=== PATIENT | male | born 1990 | race African-American/Black ===

== ENCOUNTER 2019-09-24 00:36 | Observation (INO) ==
[2019-09-24] MEDS ORDERED: methylPREDNISolone SOD SUC 125 MG/2 ML VIAL IV STA (00:47)
[2019-09-24] MEDS ORDERED: SODIUM CHLORIDE 0.9% 500 ML IV STA (00:47)
[2019-09-24] MEDS ORDERED: cefTRIAXone 1,000 MG in SODIUM CHLORIDE 0.9% 100 ML IV STA (00:47)
[2019-09-24] MEDS ORDERED: ALBUTEROL NEB SOLN 5 MG/ML 20 ML/BOTTLE CONT NEB SCH (01:00)
[2019-09-24 01:09] LABS: ABG Base Excess 2.4 MMOL/L (-2.5-2.5); ABG HCO3 28.8 MMOL/L (20-26); ABG Oxygen Saturation 98.3 % (95-100); ABG PCO2 52.7 MM HG (35-48); ABG PH 7.355 (7.35-7.45); ABG TCO2 30.4 MMOL/L (23-27)
[2019-09-24 01:15] LABS: PT Patient Result 10.5 SECS (9.8-11.9)
[2019-09-24 01:24] LABS: Basophils # 0.1 10*3/uL (0.0-0.2); Basophils % 0.8 % (0.0-0.8); Eosinophils # 0.5 10*3/uL (0.0-0.87); Eosinophils % 4.5 % (0.00-10.9); Hematocrit 38.8 VOL% (42.0-52.0); Hemoglobin 11.2 GM/DL (14.0-18.0); Immature Granulocytes % 0.3 %; Immature Granulocytes Absolute 0.03 #; Lymphocytes # 3.7 10*3/uL (1.4-4.0); Mean Corpuscular HGB Conc 28.9 GM/DL (32-36); Mean Corpuscular Volume 72.4 FL (87-102); Mean Platelet Volume 10.2 FL (9.6-12.0); Monocytes % 7.6 % (1.7-12.7); Neutrophils % 51.8 % (38.7-73.9); Platelet Count 342 T/CUMM (130-400); Red Blood Count 5.36 MC/CUMM (3.8-5.5); Red Cell Distribution Width 16.1 % (9.3-17.3); White Blood Count 10.6 T/CUMM (4-12)
[2019-09-24 01:33] LABS: Albumin 3.5 G/DL (3.4-5.0); Bilirubin,Total 0.4 MG/DL (0.2-1.0); Calcium 8.3 MG/DL (8.5-10.1); Osmolality,Calculated 280.1 MOS/KG (273-304); Total Protein 6.2 G/DL (6.4-8.3)
[2019-09-24 03:17] LABS: Anisocytosis 1+; Microcytosis 2+
[2019-09-24 03:18] LABS: Hypochromasia 1+; Ovalocytes 1+; Platelet Estimate Normal
[2019-09-24 03:20] LABS: Polychromasia Slight
[2019-09-24] MEDS ORDERED: ACETAMINOPHEN 325 MG TABLET PO PRN (04:00)
[2019-09-24] MEDS ORDERED: NICOTINE 21 MG/24 HR PATCH TRANSDERM PRN (04:00)
[2019-09-24] MEDS ORDERED: guaiFENesin/DM ER 600-30 MG TABLET PO PRN (04:00)
[2019-09-24] MEDS ORDERED: hydrALAZINE 20 MG/1 ML VIAL IV PRN (04:00)
[2019-09-24] MEDS ORDERED: ONDANSETRON 4 MG/2 ML VIAL IV PRN (04:00)
[2019-09-24] MEDS ORDERED: diphenhydrAMINE CAP 25 MG CAPSULE PO PRN (04:00)
[2019-09-24] MEDS ORDERED: GLUCAGON 1 MG VIAL IM PRN (04:00)
[2019-09-24] MEDS ORDERED: DEXTROSE 50% 25 GM/50 ML VIAL IV PRN (04:00)
[2019-09-24] MEDS: ALBUTEROL/IPRATROPIUM 3 ML NEB RESP TX SCH ×3 (07:11→22:32)
[2019-09-24] MEDS ORDERED: AZITHROMYCIN 250 MG TABLET PO ONE (07:28)
[2019-09-24] MEDS ORDERED: IRON SUCROSE 300 MG in SODIUM CHLORIDE 0.9% 100 ML IV ONE (08:00)
[2019-09-24] MEDS: ARFORMOTEROL 15 MCG/2 ML NEB RESP TX SCH ×2 (09:13→22:32)
[2019-09-24] MEDS: BUDESONIDE 0.5 MG/2 ML NEB RESP TX SCH ×2 (09:13→22:32)
[2019-09-24] MEDS: PANTOPRAZOLE 40 MG TABLET PO SCH (09:54)
[2019-09-24] MEDS: methylPREDNISolone SOD SUC 40 MG/1 ML VIAL IV SCH ×2 (09:54→15:46)
[2019-09-24] MEDS: FERROUS SULFATE 325 MG TABLET PO SCH ×3 (09:54→22:01)
[2019-09-24] MEDS: ENOXAPARIN 40 MG/0.4 ML SYRINGE SUBCUT SCH (10:00)
[2019-09-24 14:26] LABS: Apearance,Urine CLEAR (Clear); Bilirubin,Urine Negative (Negative); Blood, Urine Negative (Negative); Glucose,Urine (UA) Negative (Negative); Ketones,Urine Negative (Negative); Mucus,Urine Occasional /LPF (Occasional); Nitrite,Urine Negative (Negative); Protein,Urine Negative; RBC,Urine <1 /HPF (0-4); Squamous Epithelial Cell,Urine Occasional /HPF (0-10); Urine Color Yellow (Yellow); Urine Specific Gravity 1.033 (1.001-1.035); Urine Urobilinogen < 2.0 EU/DL (0.2-1.0); WBC,Urine 1 /HPF (0-6)
[2019-09-24 16:36] LABS: ABG Base Excess 3.3 MMOL/L (-2.5-2.5); ABG HCO3 27.7 MMOL/L (20-26); ABG Oxygen Saturation 93.5 % (95-100); ABG PCO2 41.3 MM HG (35-48); ABG PH 7.444 (7.35-7.45); ABG TCO2 28.9 MMOL/L (23-27); Allen Test Positive
[2019-09-24 19:51] LABS: Barbiturates Screen,Urine Negative (Negative); Benzodiazepines Screen,Urine Negative (Negative); Cannabinoid Screen,Urine Positive (Negative); Opiate Screen,Urine Negative (Negative); Phencyclidine Screen,Urine Negative (Negative)
[2019-09-24] MEDS ORDERED: MONTELUKAST 10 MG TABLET PO SCH (21:00)
[2019-09-25] MEDS: methylPREDNISolone SOD SUC 40 MG/1 ML VIAL IV SCH ×2 (00:05→08:53)
[2019-09-25] MEDS ORDERED: cefTRIAXone 1,000 MG in SYRINGE 1 EACH IV SCH (02:00)
[2019-09-25 04:20] LABS: ABG Oxygen Saturation 94.1 % (95-100); ABG PCO2 49.4 MM HG (35-48); ABG PH 7.376 (7.35-7.45); ABG PO2 75.9 MM HG (80-95); ABG TCO2 26.3 MMOL/L (23-27); Allen Test Positive
[2019-09-25] MEDS: ALBUTEROL/IPRATROPIUM 3 ML NEB RESP TX SCH ×3 (04:45→13:57)
[2019-09-25 05:49] LABS: Basophils % 0.1 % (0.0-0.8); Monocytes % 2.9 % (1.7-12.7); Red Cell Distribution Width 15.7 % (9.3-17.3)
[2019-09-25 06:01] LABS: Osmolality,Calculated 279.5 MOS/KG (273-304)
[2019-09-25 06:14] LABS: Hematocrit 36.4 VOL% (42.0-52.0); Immature Granulocytes Absolute 0.11 #; Lymphocytes # 1.1 10*3/uL (1.4-4.0); Mean Corpuscular HGB Conc 27.7 GM/DL (32-36); Mean Corpuscular Volume 75.1 FL (87-102); Mean Platelet Volume 10.2 FL (9.6-12.0); Platelet Count 280 T/CUMM (130-400); Red Blood Count 4.85 MC/CUMM (3.8-5.5); White Blood Count 10.6 T/CUMM (4-12)
[2019-09-25 06:17] LABS: Hemoglobin 10.1 GM/DL (14.0-18.0)
[2019-09-25 06:28] LABS: Hypochromasia 1+; Microcytosis 1+; Platelet Estimate Adequate
[2019-09-25] MEDS: BUDESONIDE 0.5 MG/2 ML NEB RESP TX SCH (07:25)
[2019-09-25] MEDS: ARFORMOTEROL 15 MCG/2 ML NEB RESP TX SCH (07:25)
[2019-09-25 08:20] VITALS: BP 126/71
[2019-09-25] MEDS: FERROUS SULFATE 325 MG TABLET PO SCH (08:53)
[2019-09-25] MEDS: PANTOPRAZOLE 40 MG TABLET PO SCH (08:53)
[2019-09-25] MEDS: ENOXAPARIN 40 MG/0.4 ML SYRINGE SUBCUT SCH (08:59)
[2019-09-25] MEDS ORDERED: AZITHROMYCIN 250 MG TABLET PO SCH (09:00)
[2019-09-25] MEDS ORDERED: VANCOMYCIN INJ 1,000 MG in SODIUM CHLORIDE 0.9% 250 ML IV SCH (11:30)
[2019-09-25] MEDS ORDERED: IRON SUCROSE 300 MG in SODIUM CHLORIDE 0.9% 100 ML IV ONE (13:00)
[2019-09-25] MEDS ORDERED: DOXYCYCLINE HYCLATE INJ 100 MG in SODIUM CHLORIDE 0.9% 100 ML IV SCH (14:00)
== END 2019-09-25 09:46 | disposition home or self-care (01) ==
LOC: EDUNIT# → EDBD → N.ED 00:36 → N.EDINP 00:36 → N.TELEN 06:23 → UNDODISOB 09-25 09:46
PROVIDERS: ADMIT Internal Medicine; ATTEND Internal Medicine

== ENCOUNTER 2019-09-26 01:40 | Observation (INO) ==
[2019-09-26 02:22] LABS: INR 0.9; PT Patient Result 10.1 SECS (9.8-11.9); Partial Thromboplastin Time 30.6 SECS (23.9-33.8)
[2019-09-26 02:32] LABS: Alanine Aminotransferase 18 U/L (16-61); Albumin 3.6 G/DL (3.4-5.0); Alkaline Phosphatase 101 U/L (45-117); Aspartate Amino Transferase 18 U/L (0-37); Bilirubin,Total < 0.39 MG/DL (0.2-1.0); Blood Urea Nitrogen 17 MG/DL (7-18); Calcium 8.8 MG/DL (8.5-10.1); Estimated Glom Filtration Rate 125 ML/MIN; Glucose 140 MG/DL (74-106); Osmolality,Calculated 286.1 MOS/KG (273-304); Total Protein 5.9 G/DL (6.4-8.3)
[2019-09-26 02:33] LABS: Basophils % 0.2 % (0.0-0.8); Hematocrit 37.3 VOL% (42.0-52.0); Hemoglobin 10.4 GM/DL (14.0-18.0); Immature Granulocytes % 0.9 %; Immature Granulocytes Absolute 0.11 #; Lymphocytes # 1.8 10*3/uL (1.4-4.0); Lymphocytes % 14.4 % (21.2-54.2); Mean Corpuscular HGB Conc 27.9 GM/DL (32-36); Mean Corpuscular Volume 74.9 FL (87-102); Mean Platelet Volume 10.2 FL (9.6-12.0); Monocytes % 10.1 % (1.7-12.7); Neutrophils % 74.4 % (38.7-73.9); Platelet Count 294 T/CUMM (130-400); Red Blood Count 4.98 MC/CUMM (3.8-5.5); Red Cell Distribution Width 16.1 % (9.3-17.3); White Blood Count 12.5 T/CUMM (4-12)
[2019-09-26] MEDS ORDERED: PIPERACILLIN/TAZOBACTAM 3,375 MG in SODIUM CHLORIDE 0.9% 100 ML IV STA (02:36)
[2019-09-26] MEDS ORDERED: methylPREDNISolone SOD SUC 125 MG/2 ML VIAL IV STA (02:36)
[2019-09-26] MEDS ORDERED: ALBUTEROL NEB SOLN 5 MG/ML 20 ML/BOTTLE CONT NEB SCH (03:00)
[2019-09-26 03:33] LABS: ABG Base Excess 5.3 MMOL/L (-2.5-2.5); ABG HCO3 29.1 MMOL/L (20-26); ABG Oxygen Saturation 96.1 % (95-100); ABG PCO2 48.1 MM HG (35-48); ABG PH 7.413 (7.35-7.45); ABG PO2 76.1 MM HG (80-95); ABG TCO2 27.8 MMOL/L (23-27); Allen Test Positive; Pt O2 Delivery Device Room Air
[2019-09-26] MEDS ORDERED: ONDANSETRON 4 MG/2 ML VIAL IV PRN (05:41)
[2019-09-26] MEDS ORDERED: NICOTINE 21 MG/24 HR PATCH TRANSDERM PRN (05:41)
[2019-09-26] MEDS ORDERED: diphenhydrAMINE CAP 25 MG CAPSULE PO PRN (05:41)
[2019-09-26] MEDS ORDERED: ALBUTEROL 2.5 MG/3 ML NEB RESP TX PRN (05:41)
[2019-09-26] MEDS ORDERED: guaiFENesin/DM ER 600-30 MG TABLET PO PRN (05:41)
[2019-09-26] MEDS ORDERED: DEXTROSE 50% 25 GM/50 ML VIAL IV PRN (05:41)
[2019-09-26] MEDS ORDERED: ACETAMINOPHEN 325 MG TABLET PO PRN (05:41)
[2019-09-26] MEDS ORDERED: GLUCAGON 1 MG VIAL IM PRN (05:41)
[2019-09-26] MEDS ORDERED: hydrALAZINE 20 MG/1 ML VIAL IV PRN (05:41)
[2019-09-26] MEDS ORDERED: ALBUTEROL/IPRATROPIUM 3 ML NEB RESP TX SCH (07:00)
[2019-09-26] MEDS ORDERED: BUDESONIDE 0.5 MG/2 ML NEB RESP TX SCH (08:13)
[2019-09-26] MEDS ORDERED: ARFORMOTEROL 15 MCG/2 ML NEB RESP TX SCH (08:13)
[2019-09-26] MEDS ORDERED: FERROUS SULFATE 325 MG TABLET PO SCH (09:00)
[2019-09-26] MEDS ORDERED: BUDESONIDE/FORMOTEROL 160-4.5 INHALER 6 GM INH SCH (09:00)
[2019-09-26] MEDS ORDERED: NEBIVOLOL 5 MG TABLET PO SCH (09:00)
[2019-09-26 10:50] VITALS: BP 134/91
[2019-09-26] MEDS ORDERED: PIPERACILLIN/TAZOBACTAM 3,375 MG in SODIUM CHLORIDE 0.9% 100 ML IV SCH (11:00)
[2019-09-26] MEDS ORDERED: cefTRIAXone 1,000 MG in SYRINGE 1 EACH IV SCH (12:00)
[2019-09-26] MEDS ORDERED: AZITHROMYCIN 250 MG TABLET PO SCH (12:00)
[2019-09-26] MEDS ORDERED: methylPREDNISolone SOD SUC 40 MG/1 ML VIAL IV SCH (15:00)
[2019-09-26] MEDS ORDERED: MONTELUKAST 10 MG TABLET PO SCH (21:00)
== END 2019-09-26 12:40 | disposition left against medical advice (07) ==
LOC: N.ED 01:40 → N.EDINP 01:40 → N.3E 06:52
PROVIDERS: ADMIT Internal Medicine; ATTEND Internal Medicine